=== PATIENT | male | born 1950 | race Caucasian/White ===

== ENCOUNTER 2017-10-24 13:22 | Emergency (ER) | payer OTHER ==
--- NOTE | 2017-10-24 13:35 | CPEKG ---
Heart Rate: 69 RR Interval: 870 P-R Interval: 144 QRSD Interval: 102 QT Interval: 420 QTC Interval: 450 P [place]: -22 QRS [place]: 75 T Wave [place]: 68 EKG Severity - ABNORMAL ECG - EKG Impression: SINUS RHYTHM EKG Impression: LEFT VENTRICULAR HYPERTROPHY Electronically Signed By: Phyllis Bettencourt 24-Oct-2017 21:03:31
--- NOTE | 2017-10-24 13:36 | EDPHY ---
H & P Stated Complaint: n/v Time Seen by Provider: 10/24/17 13:30 HPI/ROS: CHIEF COMPLAINT: N/V, abdominal pain HISTORY OF PRESENT ILLNESS: The patient is a 67 y/o male complaining of nausea, vomiting, and abdominal pain onset this morning. He has a history of hypertension and "esophageal situations" and GERD for which he takes antacids. This morning he went on a walk and then made pancakes as per usual for a Wednesday ; however he notes the pancakes were made with duck eggs today. He says "almost instantly within a half hour I had this stomachache coming on that continued to get worse and worse." His pain was diffuse and not cramping in quality. He then became nauseated and within an hour vomited a few times. His pain continued to worsen and he describes moaning due to the severity. He had a normal, non- bloody bowel movement prior to eating and has had no bowel movement since onset. He did start hyperventilating at one point with "cold sweats" and experienced tingling in both hands. His abdomen continues to feel "like there's a brick in there," but his other symptoms have improved somewhat. Last episode of emesis was 1.5 hours ago. He denies fever, flank pain, back pain, chest pain , urinary symptoms. He has never had symptoms like this previously. His ate the same food and has no symptoms. REVIEW OF SYSTEMS: A ten point review of systems was performed and is negative with the exception of the items mentioned in the HPI. Past medical history: Hypertension, "esophageal situations over the years" and GERD - on antacid Past surgical history: Retina surgery Family history: Noncontributory Social history: [facility] patient. Nonsmoker. Nightly alcohol use. at bedside. 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 General Appearance: Alert. Vital signs reviewed. Eyes: Pupils equal and round, no conjunctival injection, no discharge. Anicteric. ENT, Mouth: Mucous membranes are moist, no oropharyngeal erythema or edema. Neck: No lymphadenopathy, supple. Respiratory: Lungs are clear to auscultation; no wheezes, rales, or rhonchi. Cardiovascular: Regular rate and rhythm; no murmur, rub, or gallop. Gastrointestinal: Abdomen is soft and nontender, no masses or organomegaly, bowel sounds normal. Skin: Warm and dry, no rashes on exposed skin, normal color. Back: Nontender to palpation over the thoracolumbar spine. No CVAT. Extremities: No lower extremity edema, no calf tenderness or swelling. Neurological: Alert and oriented. Moving all four extremities easily and equally. Psychiatric: Normal affect. - Personal History Current Tetanus/Diphtheria Vaccine: Unsure - Medical/Surgical History Hx Asthma: No Hx Chronic Respiratory Disease: No Hx Diabetes: No Hx Cardiac Disease: No Hx Renal Disease: No Hx Cirrhosis: No Hx Alcoholism: No Hx HIV/AIDS: No Hx Splenectomy or Spleen Trauma: No Other PMH: htn, gerd - Social History Smoking Status: Never smoked Constitutional: Initial Vital Signs Temperature (C) 36.8 C 10/24/17 13:27 Heart Rate 80 10/24/17 13:27 Respiratory Rate 16 10/24/17 13:27 Blood Pressure 134/71 H 10/24/17 13:27 O2 Sat (%) 96 10/24/17 13:27 O2 Delivery Mode Room Air Allergies/Adverse Reactions: No Known Allergies Allergy (Unverified 10/24/17 13:26) Home Medications: Medication Instructions Recorded Lisinopril 10/24/17 Omeprazole 10/24/17 Ondansetron Odt [Zofran Odt 4 mg 4 mg PO Q4 PRN #10 tab 10/24/17 (RX)] Medical Decision Making ED Course/Re-evaluation: This is a 67 y/o male with hypertension and no other known cardiac risk factors who presents with acute onset abdominal pain, nausea, and vomiting after eating breakfast this morning. Symptoms have improved upon arrival here, but he continues to have diffuse abdominal discomfort. Abdomen is benign on exam. Doubt cardiac etiology for symptoms. Plan for IV, labs, EKG, and symptom management. 1L IV NS and 4mg IV Zofran ordered. The 12 lead EKG was interpreted by myself. Sinus mechanism with LVH, rate 69. See hard copy and/or "tracemaster" electronic copy for interpretation. 1607: Reassessed patient. He says he is feeling "way better, much more comfortable. My pain is way down." He no longer feels nauseated and has not vomited here. Abdomen is benign on reexamination. Plan for PO challenge. 1622: Reassessed patient. He tolerated PO fluids without issue and is comfortable going home. Return precautions discussed. Script for Zofran given. - Data Points Laboratory Results: Laboratory Results 10/24/17 13:30 10/24/17 13:30 Medications Given: Discontinued Medications Sodium Chloride (Ns) 1,000 mls @ 0 mls/hr IV EDNOW ONE; Wide Open PRN Reason: Protocol Stop: 10/24/17 13:58 Last Admin: 10/24/17 14:04 Dose: 1,000 mls Ondansetron HCl (Zofran) 4 mg IVP EDNOW ONE Stop: 10/24/17 13:58 Last Admin: 10/24/17 14:04 Dose: 4 mg Departure - Departure Disposition: Home, Routine, Self-Care Clinical Impression: Nausea and vomiting Condition: Good Instructions: Ondansetron (By mouth), Acute Nausea and Vomiting (ED) Additional Instructions: 1. Take Zofran as prescribed as needed for nausea and vomiting. 2. Increase fluid intake. 3. Follow up with your primary care provider for unimproved symptoms over the next few days. 4. Return to the ED for severe pain, uncontrollable vomiting, fever, or other worsening of condition. Referrals: Lesli Bautista MD [[facility] [place] Primary Care Provider] - As per Instructions Prescriptions: Ondansetron Odt [Zofran Odt 4 mg (RX)] 4 mg PO Q4 PRN #10 tab PRN Reason: nausea Report Scribed for: Phyllis Bettencourt Report Scribed by: Twila Wu Date of Report: 10/24/17 Time of Report: 14:00
[2017-10-24] MEDS ORDERED: NS 1,000 ML IV ONE (13:57)
[2017-10-24] MEDS ORDERED: ONDANSETRON 4 MG/2 ML VIAL IVP ONE (13:57)
[2017-10-24 14:02] LABS: PLATELET COUNT 330 10^3/uL (150-400)
[2017-10-24 16:33] VITALS: BP 130/87
== END 2017-10-24 16:33 | disposition home or self-care (01) ==
LOC: EDUNIT#
DX: R11.2 Nausea with vomiting, unspecified (principal); E86.9 Volume depletion, unspecified; I10 Essential (primary) hypertension
CPT/HCPCS: 93005; 96361; 96374; 99284; J2405